=== PATIENT | male | born 1945 | race African-American/Black ===

== ENCOUNTER 2017-05-29 12:01 | Emergency (ER) | payer OTHER ==
[~2017-05-29] VITALS: Ht 182.9 cm; Wt 95.3 kg
--- NOTE | ~2017-05-29 | EKG ---
[place] [address] [address] [facility] [place] [address] ELECTROCARDIOGRAM REPORT Name: RICK RUIZ Room #: [facility]#: [id number] Admission: 05/29/17 Attend Phys: Discharge: Date of : 43 Report #: [id number] THIS REPORT FOR: //name// [facility] ED Test Date: 2017-05-29 Test Time: 13:21:49 Pat Name: RICK RUIZ Department: Room: Gender: M [facility]inarian[facility] 1945 Requested By: Avi Simpson Order Number: [id number] MD: Kevan Alcaraz Measurements Intervals [place] Rate: 92 P: 57 [place]: 188 QRS: -21 QRSD: 101 T: 78 QT: 378 QTc: 468 Interpretive Statements Sinus rhythm Probable left atrial enlargement Left ventricular hypertrophy Compared to ECG 08/15/2012 10:16:02 Left ventricular hypertrophy now present Ventricular premature complex(es) no longer present T-wave abnormality no longer present Electronically Signed On 05-29-2017 16:29:56 CUSTOMER RETENTION SPECIALIST by Kevan Alcaraz [email or web address] <ELECTRONICALLY SIGNED> By: Kevan Alcaraz MD 05/29/17 1629 1321 1321 Kevan Alcaraz MD /EPI
[~2017-05-29 12:01] MED LIST: ASPIRIN EC81 M1 PO; ATENOLOL 50 MG50 M1 PO; ATENOLOL 50MG T50 M1 PO; COUMADIN 5 MG TA5 M1 PO; DEEP SEA NASAL44 M1 NS; ECHINACEA HERB380 MG PO; ECHINACEA167 MG PO; ENOXAPARIN100 MG/1 M SQ; LIPITOR40 MG PO; LISINOPRIL20 MG PO; LISINOPRIL30 MG PO; NASAL & SINUS D30 MG PO; NITROSTAT0.4 MG SL; NORVASC10 MG; NORVASC10 MG PO; VICODIN 5-5001 EACH PO
[2017-05-29 12:54] LABS: HEMATOCRIT 42.4 % (42.0-52.0); HEMOGLOBIN 14.3 gm/dL (14.0-18.0); MCH 31.2 pg (26.0-34.0); MCHC 33.7 g/dL (28.0-37.0); MCV 92.6 fL (80.0-100.0); PLATELET COUNT 179 thou/uL (150-400); RBC 4.58 mil/uL (4.50-6.00); RDW 13.3 % (10.5-14.5)
[2017-05-29 13:01] LABS: ANION GAP 7 mmol/L (7-16); BUN 14 mg/dL (7-18); CALCIUM 8.6 mg/dL (8.5-10.1); CHLORIDE 105 mmol/L (98-107); CO2 29 mmol/L (21-32); CREATININE 1.3 mg/dL (0.7-1.3); GLUCOSE 112 mg/dL (74-106); SODIUM 141 mmol/L (136-145)
[2017-05-29 13:10] LABS: ALBUMIN 3.1 g/dL (3.4-5.0); MAGNESIUM 2.4 mg/dL (1.8-2.4); SGOT 32 U/L (15-37); SGPT 31 U/L (30-65); TOTAL BILIRUBIN 1.5 mg/dL (<0.1-1.0); TROPONIN-I < 0.04 ng/mL (<0.06)
[2017-05-29 13:17] LABS: BE(vivo) 2.7 mmol/L (-2 to +3); HCO3 27.9 mmol/L (22.0-26.0); PO2 55.8 mmHg (80.0-100.0); pH 7.411 (7.360-7.450); sO2 89.2 % (92.0-98.0)
[2017-05-29 13:50] LABS: ABSOLUTE NEUTROPHILS 4.7 thou/uL (1.4-8.2)
[2017-05-29] MEDS ORDERED: PREDNISONE 20 M20 MG PO (13:54)
[2017-05-29] MEDS ORDERED: ALBUTEROL2.5 MG/31 INH (13:54)
[2017-05-29 14:10] VITALS: BP 130/79
[2017-11-06] MEDS ORDERED: POTASSIUM20 PO (00:51)
[2017-11-06] MEDS ORDERED: LASIX 20 MG TAB20 MG PO (00:51)
[2017-11-11] MEDS ORDERED: PACERONE 200 M200 M1 PO (16:04)
[2017-11-11] MEDS ORDERED: CARVEDILOL3.125 MG PO (16:04)
[2017-11-11] MEDS ORDERED: IPRAT-ALBUT 0.5-3 ML INH ×2 (16:04)
[2017-11-11] MEDS ORDERED: ALPRAZOLAM 0.50.5 M1 PO (16:04)
[2017-11-11] MEDS ORDERED: PREDNISONE 20 M20 M1 PO (16:04)
[2017-11-11] MEDS ORDERED: DEMADEX20 MG PO (16:04)
[2017-11-11] MEDS ORDERED: FOLIC ACID 1 MG1 MG PO (16:04)
== END 2017-05-29 14:10 | disposition home or self-care (01) ==
LOC: ER 12:01
PROVIDERS: Emergency Medicine
DX: J44.1 Chronic obstructive pulmonary disease with (acute) exacerbation (principal); R09.02 Hypoxemia; I10 Essential (primary) hypertension; F17.210 Nicotine dependence, cigarettes, uncomplicated; I25.2 Old myocardial infarction

== ENCOUNTER → 2017-09-12 | Outpatient (CLI) | payer OTHER ==
[~2017-09-12] MED LIST changes: +12 HOUR NASAL R15 ML NASAL; +ALBUTEROL2.5 MG/31 INH; +COZAAR 50 MG TA50 M2 PO; +DOXYCYCLINE 10100 MG PO; +FLONASE 0.05%50 MCG NASAL; +MUCINEX600 MG PO; +PREDNISONE 20 M20 MG PO
== END ==
LOC: ULTRA
DX: M79.89 Other specified soft tissue disorders (principal)

== ENCOUNTER 2017-09-20 16:00 | Emergency (ER) | payer OTHER ==
[~2017-09-20] VITALS: Ht 182.9 cm; Wt 99.8 kg
--- NOTE | ~2017-09-20 | EKG ---
[address] [address] ELECTROCARDIOGRAM REPORT Name: RICK RUIZ Room #: [facility]#: [id number] Admission: 09/20/17 Attend Phys: Discharge: 09/20/17 Date of : 43 Report #: [id number] THIS REPORT FOR: //name// [facility] ED Test Date: 2017-09-20 Test Time: 16:22:36 Pat Name: RICK RUIZ Department: Room: Gender: Demurrage Agent: Sekou HESS : 1945 Requested By: Nilam Osman Order Number: [id number] MD: Curry Sims Measurements Intervals [place] Rate: 104 P: -2 IN: 189 QRS: -24 QRSD: 99 T: 88 QT: 360 QTc: 474 Interpretive Statements Sinus tachycardia Left ventricular hypertrophy with repolarization abnormality Compared to ECG 05/29/2017 13:21:49 Sinus rhythm no longer present Electronically Signed On 09-21-2017 12:56:54 CDT by Curry Sims [email or web address] <ELECTRONICALLY SIGNED> By: Curry Sims MD 09/21/17 1256 1622 1622 MD JP Cruz
[~2017-09-20 16:00] MED LIST changes: -12 HOUR NASAL R15 ML NASAL; -COZAAR 50 MG TA50 M2 PO; -DOXYCYCLINE 10100 MG PO; -FLONASE 0.05%50 MCG NASAL; -MUCINEX600 MG PO
[2017-09-20] MEDS ORDERED: FLONASE 0.05%50 MCG NASAL (16:26)
[2017-09-20] MEDS ORDERED: COZAAR 50 MG TA50 M2 PO (16:27)
[2017-09-20] MEDS ORDERED: 12 HOUR NASAL R15 ML NASAL (16:28)
[2017-09-20 16:48] LABS: ABSOLUTE NEUTROPHILS 3.3 thou/uL (1.4-8.2); BASOPHILS 1.5 % (0.0-2.0); EOSINOPHILS 4.1 % (0.0-3.0); HEMATOCRIT 39.3 % (42.0-52.0); HEMOGLOBIN 13.2 gm/dL (14.0-18.0); LYMPHOCYTES 16.3 % (24.0-44.0); MCH 31.6 pg (26.0-34.0); MCHC 33.7 g/dL (28.0-37.0); PLATELET COUNT 174 thou/uL (150-400); POLYS 69.1 % (36.0-66.0); RBC 4.18 mil/uL (4.50-6.00); WBC 4.8 thou/uL (4.0-11.0)
[2017-09-20 16:57] LABS: ANION GAP 8 mmol/L (7-16); BUN 15 mg/dL (7-18); CALCIUM 8.9 mg/dL (8.5-10.1); CHLORIDE 106 mmol/L (98-107); CO2 27 mmol/L (21-32); CREATININE 1.3 mg/dL (0.7-1.3); GLUCOSE 82 mg/dL (74-106); POTASSIUM 3.9 mmol/L (3.5-5.1); SODIUM 141 mmol/L (136-145)
[2017-09-20 17:05] LABS: ALBUMIN 3.3 g/dL (3.4-5.0); SGOT 31 U/L (15-37); SGPT 32 U/L (30-65); TOTAL BILIRUBIN 1.3 mg/dL (<0.1-1.0); TOTAL PROTEIN 7.2 g/dL (6.4-8.2); TROPONIN-I < 0.04 ng/mL (<0.06)
[2017-09-20 18:26] LABS: BE(vivo) 1.9 mmol/L (-2 to +3); HCO3 26.3 mmol/L (22.0-26.0); PCO2 40.7 mmHg (35.0-45.0); PO2 72.9 mmHg (80.0-100.0); pH 7.429 (7.360-7.450); sO2 95.1 % (92.0-98.0)
[2017-09-20] MEDS ORDERED: MUCINEX600 MG PO (19:20)
[2017-09-20] MEDS ORDERED: DOXYCYCLINE 10100 MG PO (19:20)
[2017-09-20] MEDS ORDERED: PREDNISONE 20 M20 MG PO (19:20)
== END 2017-09-20 19:56 | disposition home or self-care (01) ==
LOC: ER 16:00
PROVIDERS: Physician Assistant
DX: J44.1 Chronic obstructive pulmonary disease with (acute) exacerbation (principal); Z99.81 Dependence on supplemental oxygen; I10 Essential (primary) hypertension; I25.2 Old myocardial infarction

== ENCOUNTER 2018-02-09 18:06 | Emergency (ER) | payer OTHER ==
[~2018-02-09] VITALS: Ht 188 cm; Wt 77.1 kg
--- NOTE | ~2018-02-09 | EKG ---
[place] [address] [address] [facility] [place] [address] ELECTROCARDIOGRAM REPORT Name: RICK RUIZ Room #: [facility]#: [id number] Admission: 02/09/18 Attend Phys: Discharge: 02/09/18 Date of : 43 Report #: [id number] THIS REPORT FOR: //name// [facility] ED Test Date: 2018-02-09 Test Time: 18:06:42 Pat Name: RICK RUIZ Department: Room: Gender: M Data Warehouse Analyst: MARIA DE JESUS : 1945 Requested By: Kaylyn Lepe Order Number: [id number] MD: Robert Johnston Measurements Intervals [place] Rate: 102 P: 54 SD: 184 QRS: -7 QRSD: 107 T: 91 QT: 336 QTc: 438 Interpretive Statements Sinus tachycardia LVH with secondary repolarization abnormality Baseline wander in lead(s) V1 Compared to ECG 11/05/2017 20:14:35 No significant change was found Electronically Signed On 02-10-2018 7:55:38 CDT by Robert Johnston [email or web address] <ELECTRONICALLY SIGNED> By: Robert Johnston MD, [facility] 02/10/18 0755 05 05 Robert Johnston MD, [facility] /EPI
[~2018-02-09 18:06] MED LIST changes: +12 HOUR NASAL R15 ML NASAL; +ALPRAZOLAM 0.50.5 M1 PO; +CARVEDILOL3.125 MG PO; +COZAAR 50 MG TA50 M2 PO; +DEMADEX20 MG PO; +DOXYCYCLINE 10100 MG PO; +FLONASE 0.05%50 MCG NASAL; +FOLIC ACID 1 MG1 MG PO; +IPRAT-ALBUT 0.5-3 ML INH; +LASIX 20 MG TAB20 MG PO; +MUCINEX600 MG PO; +PACERONE 200 M200 M1 PO; +POTASSIUM20 PO; +PREDNISONE 20 M20 M1 PO
[2018-02-09 18:37] LABS: ABSOLUTE NEUTROPHILS 4.5 thou/uL (1.4-8.2); BASOPHILS 0.4 % (0.0-2.0); EOSINOPHILS 2.5 % (0.0-3.0); HEMATOCRIT 33.9 % (42.0-52.0); HEMOGLOBIN 11.3 gm/dL (14.0-18.0); LYMPHOCYTES 11.9 % (24.0-44.0); MCH 31.4 pg (26.0-34.0); MCHC 33.3 g/dL (28.0-37.0); MCV 94.4 fL (80.0-100.0); MONOCYTES 7.9 % (1.0-8.0); PLATELET COUNT 172 thou/uL (150-400); POLYS 77.3 % (36.0-66.0); RBC 3.59 mil/uL (4.50-6.00); RDW 14.7 % (10.5-14.5); WBC 5.8 thou/uL (4.0-11.0)
[2018-02-09 18:43] LABS: ANION GAP 5 mmol/L (7-16); BUN 13 mg/dL (7-18); CALCIUM 8.6 mg/dL (8.5-10.1); CHLORIDE 105 mmol/L (98-107); CO2 28 mmol/L (21-32); CREATININE 1.4 mg/dL (0.7-1.3); GLUCOSE 106 mg/dL (74-106); POTASSIUM 4.3 mmol/L (3.5-5.1); SODIUM 138 mmol/L (136-145)
[2018-02-09 18:52] LABS: TROPONIN-I <0.06 ng/mL (<0.06)
[2018-02-09 20:10] VITALS: BP 135/79
== END 2018-02-09 20:11 | disposition home or self-care (01) ==
LOC: ER 18:06
PROVIDERS: Emergency Medicine
DX: I13.0 Hypertensive heart and chronic kidney disease with heart failure and stage 1 through stage 4 chronic kidney disease, or unspecified chronic kidney disease (principal); N18.3 Chronic kidney disease, stage 3 (moderate); I50.9 Heart failure, unspecified; J44.9 Chronic obstructive pulmonary disease, unspecified; E78.00 Pure hypercholesterolemia, unspecified; Z86.718 Personal history of other venous thrombosis and embolism; Z87.891 Personal history of nicotine dependence; Z99.81 Dependence on supplemental oxygen

== ENCOUNTER 2018-03-09 20:20 | Inpatient (IN) | payer OTHER ==
[~2018-03-09] VITALS: Ht 188 cm; Wt 88.3 kg
--- NOTE | ~2018-03-09 | HC ---
[facility] [place] [address] CONSULTATION Name: RICK RUIZ Room #: 364-P ADM IN M.R.#: [id number] Admission: 03/09/18 Attend Phys: Nura Adame Discharge: Date of : 43 Report #: [id number] THIS REPORT FOR: //name// CC: Nura Kolb REFERRAL PHYSICIAN: Dr. Sims. REASON FOR REFERRAL: Dyspnea. HISTORY OF PRESENT ILLNESS: The patient is a 72-year-old -[place]ian male who presented to the Emergency Room with progressive dyspnea. He was admitted for heart failure. The patient has underlying COPD. A pulmonary consultation was requested. The patient was last hospitalized in 10/2017 for exacerbation of COPD. He has been doing fairly well until the morning prior to presentation where he started to develop increasing dyspnea. He has also noticed that lower extremity is swollen. Otherwise, denies any recent chest pain, productive cough, febrile illness. PAST MEDICAL HISTORY: Notable for coronary artery disease, ischemic cardiomyopathy, ejection fraction of 30% with valvular heart disease. He has a history of COPD, is oxygen dependent. He is normally followed by Pulmonary outside of [facility]. He is on 3 liters of O2, 24 hours a day. He also has a past history of hypertension, hypercholesterolemia, chronic renal disease, remote history of DVT. There is a history of medical noncompliance. PAST SURGICAL HISTORY: Status post bilateral inguinal herniorrhaphy. ALLERGIES: None to medications. HOME MEDICATIONS: Reviewed in the MAR. FAMILY HISTORY: Noncontributory. SOCIAL HISTORY: The patient has smoked about a pack a day for most of his life. He quit few years ago. He drinks socially. REVIEW OF SYSTEMS: As mentioned above, otherwise 10-point system review negative. PHYSICAL EXAMINATION: GENERAL: He is awake, alert, in mild distress, appears moderately dyspneic. VITAL SIGNS: Temperature is 98 degrees Fahrenheit, pulse is 90, respiratory rate is 18, blood pressure 114/79 mmHg, saturation 99%. HEENT: Normocephalic, atraumatic. [facility] [address] [place] [address] CONSULTATION Name: RICK RUIZ Room #: 364-P [facility] IN M.R.#: [id number] Admission: 03/09/18 Attend Phys: Nura Howard Deep Discharge: Date of : 43 Report #: [id number] NECK: Supple, without lymphadenopathy or thyromegaly. CHEST: Breath sounds are decreased bilaterally with mild expiratory wheezes. No obvious wheezes. No rales. CARDIOVASCULAR: Normal S1, S2. No murmurs or gallop. There is no JVD. There is no carotid bruit. Pulses are 2+/4+ bilaterally. ABDOMEN: Soft, nontender, no organomegaly or masses felt. GENITOURINARY: Deferred. RECTAL: Deferred. EXTREMITIES: Reveal 3+ tense bilateral lower extremity edema. No clubbing noted. NEUROLOGIC: Grossly intact. LABORATORY DATA: Chest x-ray shows no obvious infiltrates, mild increase in interstitial markings, but no consolidation, no effusion seen. Electrolytes: Sodium 141, potassium 5.1, chloride 106, CO2 is 29, BUN is 29, creatinine is 1.6. Baseline creatinine appears to be 1.2-1.7. Albumin 2.8. WBC 4200, hemoglobin 11.6. IMPRESSION: 1. Progressive dyspnea in this 72-year-old -[place]ambian male. Etiology is probably related to vhgxc-hp-fzobgyr combined heart failure. He has increased lower extremity edema. His dyspnea is likely contributed by underlying chronic obstructive pulmonary disease. 2. Chronic obstructive pulmonary disease, severity unknown, oxygen-dependent at 3 liters of O2. 3. Iytho-cn-adbubvy hypercapnic hypoxic respiratory failure due to above. 4. Chronic kidney disease, baseline creatinine around 1.2-1.7. 5. Coronary artery disease, ischemic cardiomyopathy with ejection fraction 30%. 6. Hypertension. RECOMMENDATION: We will continue O2 to keep saturation 90-92%, continue with bronchodilator therapy. I do not think he needs a course of corticosteroids at this time. Continue diuresis as you are. DVT and GI prophylaxis recommended. Thank you for this consultation. <ELECTRONICALLY SIGNED> By: Bucky Pedroza MD 03/11/18 184 23 10 Bucky Pedroza MD /nt
--- NOTE | ~2018-03-09 | EKG ---
[address] [place] [address] ELECTROCARDIOGRAM REPORT Name: RICK RUIZ Room #: 364-P ADM IN M.R.#: [id number] Admission: 03/09/18 Attend Phys: Nura Adame Discharge: Date of : 43 Report #: [id number] THIS REPORT FOR: //name// [facility] ED Test Date: 2018-03-09 Test Time: 20:27:17 Pat Name: RICK GARNICALER Department: Room: 364 Gender: M Assistant Pastry Chef: pawel : 1945 Requested By: Mimi Menard Order Number: [id number] MD: Robert Johnston Measurements Intervals [place] Rate: 99 P: 69 [place]: 203 QRS: -17 QRSD: 106 T: 78 QT: 380 QTc: 488 Interpretive Statements Sinus tachycardia Ventricular trigeminy Nonspecific ST and T wave abnormality Borderline prolonged QT interval Compared to ECG 02/09/2018 18:06:42 Ventricular premature complex(es) now present Electronically Signed On 03-10-2018 8:51:48 TEA PLANTATION WORKER by Robert Johnston [email or web address] <ELECTRONICALLY SIGNED> By: Robert Johnston MD, [facility] 03/10/18 0851 26 26 Robert Johnston MD, [facility] /EPI
--- NOTE | ~2018-03-09 | HC ---
[facility] [place] [address] CONSULTATION Name: SARAIRCK Jerome Room #: 364-P [facility] IN ..#: [id number] Admission: 03/09/18 Attend Phys: Nura Adame Discharge: Date of : 43 Report #: [id number] THIS REPORT FOR: //name// CC: Nura Chancevsky DATE OF SERVICE: 03/09/2018 INDICATION: Shortness of air. HISTORY OF PRESENT ILLNESS: This is a 72-year-old gentleman with a history of COPD on chronic oxygen therapy, cardiomyopathy, coronary artery disease, hypertension, hypercholesterolemia, chronic renal insufficiency, and medical noncompliance, presenting with dyspnea. Over the past few days, he has noticed increasing dyspnea and cough. He denies any symptoms of chest discomfort, fever, nausea or diarrhea. In the ER, he was given Lasix with an improvement in his symptoms. He denies any recent increase in his salt intake. He is on 3 liters of oxygen via nasal cannula. On his last office visit approximately 6 months ago, he was noted to have increased swelling of the legs, a diuretic was recommended; however, he refused. He has a history of refusing statin therapy, beta blockers and diuretic therapy. PAST MEDICAL HISTORY: CAD, noted to have a 75% LAD occlusion back in 2012. Angioplasty was unobtainable secondary to vessel tortuosity within the aorta. History of chronic obstructive pulmonary disease, on chronic oxygen therapy. Newly diagnosed with cardiomyopathy in 10/2017 with an EF in the 30% range with moderate valvular abnormalities. History of hypertension, hypercholesterolemia, chronic renal insufficiency, and remote DVT. History of medical noncompliance. ALLERGIES: No known drug allergies. MEDICATIONS: At home include albuterol inhaler, losartan, aspirin. SOCIAL HISTORY: Denies tobacco use. FAMILY HISTORY: Negative for premature CAD. REVIEW OF SYSTEMS: A full 10-point review of systems performed. Only the pertinent positives and negatives are described in the HPI. PHYSICAL EXAMINATION: VITAL SIGNS: Blood pressure is 120/70, heart rate is 80 beats per minute. GENERAL APPEARANCE: An elderly appearing male, in no acute respiratory distress. [facility] [address] [place] [address] CONSULTATION Name: RICK RUIZ Justus Room #: 364-P [facility] IN .R.#: [id number] Admission: 03/09/18 Attend Phys: Nura Adame Discharge: Date of : 43 Report #: [id number] HEENT: Normocephalic, atraumatic. Sclerae are anicteric. Oral mucosa moist. NECK: Supple. LUNGS: Diminished breath sounds at the bases. CARDIAC: Regular rate and rhythm, S1, S2 positive. ABDOMEN: Soft, nontender. EXTREMITIES: No cyanosis, positive edema. LABORATORY VALUES: Creatinine is 1.6. White count is 4.2, hemoglobin 11.6. EKG reveals sinus rhythm, LVH, PVCs. ASSESSMENT AND PLAN: 1. Congestive heart failure, acute on chronic combined, probably related to dietary indiscretion. He had refused Lasix therapy in the past. We will use Lasix IV at this time. Given his underlying cardiomyopathy, we will add a low dose of carvedilol. Continue with losartan. 2. Chronic obstructive pulmonary disease, on chronic oxygen therapy. Recommend a Pulmonary evaluation to rule out possible infectious process. 3. Hypertension, continue with medications. 4. Edema, should improve with Lasix therapy. 5. Hypercholesterolemia, he refuses statin therapy. <ELECTRONICALLY SIGNED> By: Curry Sims MD 03/11/18 0809 0941 1138 Curry Sims MD /nt
[2018-03-09 20:21] VITALS: BP 119/71
[2018-03-09] MEDS ORDERED: LASIX 20 MG TAB20 MG PO (20:36)
[2018-03-09] MEDS ORDERED: CYMBALTA20 MG PO (20:37)
[2018-03-09] MEDS ORDERED: TRELEGY ELLIPT1 EACH INH (20:38)
[2018-03-09 20:41] LABS: ABSOLUTE NEUTROPHILS 2.8 thou/uL (1.4-8.2); BASOPHILS 0.9 % (0.0-2.0); EOSINOPHILS 4.9 % (0.0-3.0); HEMATOCRIT 34.8 % (42.0-52.0); HEMOGLOBIN 11.6 gm/dL (14.0-18.0); LYMPHOCYTES 18.5 % (24.0-44.0); MCHC 33.3 g/dL (28.0-37.0); MCV 95.9 fL (80.0-100.0); MONOCYTES 8.2 % (1.0-8.0); PLATELET COUNT 178 thou/uL (150-400); POLYS 67.5 % (36.0-66.0); RBC 3.62 mil/uL (4.50-6.00); RDW 14.4 % (10.5-14.5); WBC 4.2 thou/uL (4.0-11.0)
[2018-03-09 20:50] LABS: ANION GAP 4 mmol/L (7-16); BUN 21 mg/dL (7-18); CALCIUM 9.2 mg/dL (8.5-10.1); CHLORIDE 107 mmol/L (98-107); CO2 28 mmol/L (21-32); CREATININE 1.3 mg/dL (0.7-1.3); GLUCOSE 78 mg/dL (74-106); POTASSIUM 4.9 mmol/L (3.5-5.1); SODIUM 139 mmol/L (136-145)
[2018-03-09 20:58] LABS: ALBUMIN 2.8 g/dL (3.4-5.0); LIPASE 48 U/L (73-393); MAGNESIUM 1.9 mg/dL (1.8-2.4); SGOT 34 U/L (15-37); SGPT 20 U/L (30-65); TOTAL BILIRUBIN 1.8 mg/dL (<0.1-1.0); TOTAL PROTEIN 6.7 g/dL (6.4-8.2); TROPONIN-I <0.06 ng/mL (<0.06)
[2018-03-09 21:44] VITALS: BP 122/66
[2018-03-09 22:42] VITALS: BP 108/66
[2018-03-10 00:26] VITALS: BP 122/75
[2018-03-10 04:00] VITALS: BP 112/88
[2018-03-10 07:07] LABS: CALCIUM 9.1 mg/dL (8.5-10.1); CREATININE 1.6 mg/dL (0.7-1.3); POTASSIUM 5.1 mmol/L (3.5-5.1)
[2018-03-10 08:31] VITALS: BP 114/79
[2018-03-10 14:33] VITALS: BP 103/60
[2018-03-10 20:30] VITALS: BP 99/56
[2018-03-11 04:30] VITALS: BP 117/78
[2018-03-11 06:46] LABS: CALCIUM 8.9 mg/dL (8.5-10.1); CREATININE 1.8 mg/dL (0.7-1.3); PHOSPHORUS 5.5 mg/dL (2.5-4.9); POTASSIUM 4.9 mmol/L (3.5-5.1)
[2018-03-11 08:38] VITALS: BP 118/78
[2018-03-11 11:42] VITALS: BP 108/63
[2018-03-11 16:30] VITALS: BP 110/64
[2018-03-11 20:30] VITALS: BP 104/70
[2018-03-12 05:10] VITALS: BP 106/66
[2018-03-12 06:50] LABS: CALCIUM 9.1 mg/dL (8.5-10.1); CREATININE 1.8 mg/dL (0.7-1.3); POTASSIUM 5.2 mmol/L (3.5-5.1)
[2018-03-12 07:22] LABS: FOLIC ACID 6.6 ng/mL (8.6-58.9)
[2018-03-12] MEDS ORDERED: COREG6.25 MG PO (07:52)
[2018-03-12] MEDS ORDERED: PREDNISONE 10 M10 MG PO (07:53)
[2018-03-12 08:00] VITALS: BP 116/73
[2018-03-12 09:37] VITALS: BP 116/73
[2018-03-12 12:00] VITALS: BP 109/52
== END 2018-03-12 16:07 | disposition home or self-care (01) | DRG 682 ==
LOC: ER 20:20 → EROBS 21:25 → 3W 21:25 → ENTRNSPT 03-12 15:47 → EDTRNSPTSTS 03-12 15:50 → 3W 03-12 16:07
PROVIDERS: Hospitalist; Internal Medicine Cardiovascular Disease; Nurse Practitioner Family
DX: N17.0 Acute kidney failure with tubular necrosis (principal); I50.43 Acute on chronic combined systolic (congestive) and diastolic (congestive) heart failure; J96.21 Acute and chronic respiratory failure with hypoxia; J96.22 Acute and chronic respiratory failure with hypercapnia; I13.0 Hypertensive heart and chronic kidney disease with heart failure and stage 1 through stage 4 chronic kidney disease, or unspecified chronic kidney disease; J44.9 Chronic obstructive pulmonary disease, unspecified; F41.9 Anxiety disorder, unspecified; N18.3 Chronic kidney disease, stage 3 (moderate); I25.10 Atherosclerotic heart disease of native coronary artery without angina pectoris; E78.00 Pure hypercholesterolemia, unspecified; I25.5 Ischemic cardiomyopathy; Z66 Do not resuscitate; G47.00 Insomnia, unspecified; T50.2X5A Adverse effect of carbonic-anhydrase inhibitors, benzothiadiazides and other diuretics, initial encounter; Z68.25 Body mass index [BMI] 25.0-25.9, adult; Z98.52 Vasectomy status; Z86.718 Personal history of other venous thrombosis and embolism; Z87.891 Personal history of nicotine dependence; Z91.14 Patient's other noncompliance with medication regimen; Z99.81 Dependence on supplemental oxygen; Z82.49 Family history of ischemic heart disease and other diseases of the circulatory system; Z83.3 Family history of diabetes mellitus; I25.2 Old myocardial infarction
CPT/HCPCS: 10879

== ENCOUNTER 2018-04-20 15:39 | Inpatient (IN) | payer OTHER ==
[~2018-04-20] VITALS: Ht 188 cm; Wt 89.1 kg
[~2018-04-20 15:39] MED LIST changes: +COREG6.25 MG PO; +CYMBALTA20 MG PO; +PREDNISONE 10 M10 MG PO; +TRELEGY ELLIPT1 EACH INH
[2018-04-20 15:40] VITALS: BP 114/70
[2018-04-20 17:49] LABS: CALCIUM 8.8 mg/dL (8.5-10.1); CREATININE 1.5 mg/dL (0.7-1.3); POTASSIUM 3.8 mmol/L (3.5-5.1)
[2018-04-20 17:55] LABS: ALBUMIN 2.7 g/dL (3.4-5.0); TOTAL BILIRUBIN 2.1 mg/dL (<0.1-1.0); TOTAL PROTEIN 6.2 g/dL (6.4-8.2)
[2018-04-20 18:23] LABS: URINE CLARITY CLEAR; URINE COLOR YELLOW
[2018-04-20 18:24] LABS: ICTOTEST (BILI CONFIRMATORY) Negative (Negative); URINE BILIRUBIN NEGATIVE (Negative); URINE BLOOD TRACE (Negative); URINE GLUCOSE-RANDOM* NEGATIVE (Negative); URINE KETONES NEGATIVE (Negative); URINE LEUKOCYTES-REFLEX NEGATIVE (Negative); URINE NITRITE-REFLEX NEGATIVE (Negative); URINE PROTEIN (DIPSTICK) NEGATIVE (Negative)
[2018-04-20 18:48] VITALS: BP 113/69
[2018-04-20 19:29] VITALS: BP 111/69
[2018-04-20 20:40] VITALS: BP 123/73
--- NOTE | 2018-04-21 02:54 | NUR ---
PT WAS EARLY EVENING ADMIT FROM ER. HISTORY SHOWS PT HAS BEEN HERE QUITE A FEW TIMES BEFORE AND MOST RECENTLY 03/01 WITH SAME SYMPTOMS. PT IS NOW ON 3L NC. OVER LAST 5 DAYS PT HAS BEEN BECOMING INCREASING MORE LETHARGIC AND HAVING BOUTS OF CONFUSION. PT UP TO BEDSIDE TO USE URINAL. USES WHEELCHAIR FOR MOVEMENT IN LONG DISTANCES. DURING ADMISSION PT STATES HE HAS NO N/V OR PAIN. LASIX WAS GIVEN AND PT IS PRODUCING GOOD AMOUNTS OF URINE OUT. HOURLY ROUNDING.
[2018-04-21 04:27] LABS: CALCIUM 8.8 mg/dL (8.5-10.1); CREATININE 1.4 mg/dL (0.7-1.3); POTASSIUM 4.5 mmol/L (3.5-5.1)
[2018-04-21 04:30] VITALS: BP 122/77
--- NOTE | 2018-04-21 07:57 | EKG ---
[place] [address] [address] [place] [address] ELECTROCARDIOGRAM REPORT Name: RICK RUIZ Room #: 357- ADM IN M.R.#: [id number] Admission: 04/20/18 Attend Phys: Vikas Bennett MD Discharge: Date of : 43 Report #: [id number] THIS REPORT FOR: //name// [facility] ED Test Date: 2018-04-20 Test Time: 17:34:12 Pat Name: RICK RUIZ Department: Room: 357 Gender: M Interactive Media Director: autumn : 1945 Requested By: Davin Singh Order Number: [id number] MD: Robert Johnston Measurements Intervals [place] Rate: 93 P: 40 MT: 191 QRS: -3 QRSD: 104 T: 114 QT: 401 QTc: 499 Interpretive Statements Sinus rhythm Ventricular bigeminy LVH with secondary repolarization abnormality Compared to ECG 03/09/2018 20:27:17 Lateral T wave abnormality is less prominent Electronically Signed On 04-21-2018 7:57:40 PIG MACHINE OPERATOR HELPER by Robert Johnston [email or web address] <ELECTRONICALLY SIGNED> By: Robert Johnston MD, [facility] 04/21/18 0757 1734 1734 Robert Johnston MD, [facility] /EPI
[2018-04-21 08:07] VITALS: BP 127/83
--- NOTE | 2018-04-21 10:57 | NUR ---
INITIAL ASSESSMENT: Pt evaluated for d/c planning needs. Reviewed chart and spoke with nurse and pt. Pt is alert and oriented. Pt states he was just yesterday. Pt has walker, can, w/c and oxygen at home. Pt has had [facility] in the past. Pt said his daughter is looking into him going to SNF on d/c from hospital. Physician spoke with pt re: cardiac rehab. Will remain available to assist as needed.
[2018-04-21 11:56] VITALS: BP 113/53
[2018-04-21 15:16] VITALS: BP 117/71
--- NOTE | 2018-04-21 16:18 | NUR ---
PT ASSESSED AT START OF SHIFT. IN GOOD SPIRITS. MANY QUESTIONS RE CONDITION AND CHF. HAD DONE WELL ON FLUID RESTRICTION. UP TO THE BR W/ WALKER AND HAD GOOD BM. SAT UP FOR SEVERAL HOURS. DIURESING SOME AFTER IV LASIX. DR. MONTEJO IN THIS AM.
[2018-04-21 19:39] VITALS: BP 99/63
[2018-04-22 04:13] LABS: HEMATOCRIT 37.6 % (42.0-52.0); HEMOGLOBIN 12.4 gm/dL (14.0-18.0); MCH 31.7 pg (26.0-34.0); MCV 96.2 fL (80.0-100.0); RBC 3.91 mil/uL (4.50-6.00); RDW 13.8 % (10.5-14.5); WBC 10.4 thou/uL (4.0-11.0)
[2018-04-22 04:17] LABS: CALCIUM 8.5 mg/dL (8.5-10.1); CREATININE 1.7 mg/dL (0.7-1.3); POTASSIUM 4.7 mmol/L (3.5-5.1)
--- NOTE | 2018-04-22 04:21 | NUR ---
PATIENT IS PROGRESSING IN HIS CARE PLAN. VITAL SIGNS STABLE WITH PATIENT HAVING NO COMPLAINTS OF PAIN OR NAUSEA. FULLY ORIENTED, PATIENT IS ABLE TO PARTICIPATE IN CARE AND CALL FOR NEEDS. HE DOES EXHIBIT SOME FORGETFUL ON OCCASION. BREATHING STABLE ON NASAL CANNULA PER ORDER EVIDENCED BY SPOT OXYGENATION CHECKS. PATIENT DOES GET EXTREMELY SOA WHEN AMBULATING AND REQUIRES A HIGHER AMOUNT OF OXYGEN. PATIENT IS A HIGH FALL RISK AND WAS ABLE TO AMBULATE TO THE RESTROOM WITHOUT INCIDENT. FLUID RESTRICTION FOLLOWED. PATIENT AND DAUGHTER ARE ANXIOUS FOR PATIENTS DISCHARGE TO SNF AND CALLED LATE LAST NIGHT TO GIVE THIS NURSE INFORMATION TO BE PASSED ON TO KNITTING TEACHER TO HOPEFULLY "EXPEDITE" THE PROCESS. IT WILL BE GIVEN IN REPORT. CONTINUE PLAN OF CARE.
[2018-04-22 04:26] VITALS: BP 125/86
--- NOTE | 2018-04-22 07:27 | NUR ---
PATIENTS DAUGHTER CALLED EARLY THIS MORNING AND WANTED THIS INFORMATION TO BE GIVEN TO CASE MANAGEMENT. - [facility] - [address], [place]. - ELIEL THOMPSON .
[2018-04-22 07:30] VITALS: BP 115/80
[2018-04-22 11:20] VITALS: BP 106/64
[2018-04-22 16:18] VITALS: BP 110/70
--- NOTE | 2018-04-22 16:32 | NUR ---
ON-GOING ASSESSMENT: CM REVIEWED CHART AND MET WITH PATIENT AND HIS SISTER WAS PRESENT AT THE BEDSIDE. PT/OT TO SEE PATIENT AND EVALS ARE NO IN YET. CM SPOKE WITH PATIENT AND HE FEELS HE MAY NEED SNF/REHAB AGAIN. PT HAS BEEN TO [facility] IN THE PAST AND STATES HE WAS UPSET BECAUSE AFTER 30 DAYS HE STATED HE HAD TO LEAVE. CM DISCUSSED THAT INSURANCE WILL LIKELY ONLY AUTHORIZE A CERTAIN AMOUNT OF DAYS. CM ALSO SPOKE WITH PATIENTS DWAYNE RUIZ [phone] WITH PATIENTS CONSENT AND SHE REPORTS SHE IS REALLY CONCERNED IF PATIENT WERE TO RETURN HOME AND FEELS PATIENT NEEDS REHAB. PT IS CURRENTLY LIVING WITH HIS SISTER CURTIS AND REPORTS SHE SMOKES ALOT. PT STATING THAT HIS DAUGHTER ALESSIO IS WORKING ON GETTING HIM TO A SNF. CM ATTEMPTED TO CONTACT HER BUT VM WAS LEFT. CM WILL CONTINUE TO FOLLOW. WAITING ON PT/OT EVALS.
--- NOTE | 2018-04-22 18:14 | NUR ---
assumed care of pt at 0700. pt alert and oriented, episodes of anxiety - finding good relief with xanax. breathing comfortably on supplemental oxygen. worked with physical/occupation therapy. voicing no complaints. no other remarkable changes. anticipate d/c in near future.
[2018-04-22 19:02] VITALS: BP 134/79
[2018-04-23 03:18] VITALS: BP 140/80
--- NOTE | 2018-04-23 03:36 | NUR ---
ASSUMED CARE AT 1900. PT SLEEPY, DROWSY BUT AO X4. DENIES PAIN. FAMILY CONCERNED ABOUT PT INCREASE CONFUSION AND WOULD LIKE PT TO HAVE A HEAD MRI TO DETERMINE REASON BEHIND CONFUSION AND FORGETFULNESS. PT OTHERWISE CALM AND PLEASANT, REQUESTED XANAX X1 AT 0200. WILL CONTINUE TO FOLLOW POC.
[2018-04-23 07:17] VITALS: BP 118/72
[2018-04-23 10:13] LABS: HEMATOCRIT 37.5 % (42.0-52.0); HEMOGLOBIN 12.1 gm/dL (14.0-18.0); MCH 31.2 pg (26.0-34.0); MCHC 32.4 g/dL (28.0-37.0); MCV 96.4 fL (80.0-100.0); RBC 3.89 mil/uL (4.50-6.00); RDW 14.1 % (10.5-14.5); WBC 12.4 thou/uL (4.0-11.0)
[2018-04-23 10:24] LABS: CALCIUM 8.7 mg/dL (8.5-10.1); CREATININE 1.6 mg/dL (0.7-1.3); MAGNESIUM 2.3 mg/dL (1.8-2.4); POTASSIUM 4.9 mmol/L (3.5-5.1)
[2018-04-23 11:14] VITALS: BP 116/77
--- NOTE | 2018-04-23 13:30 | NUR ---
ON-GOING ASSESSMENT: CM REVIEWED CHART. PHYSICAL THERAPY IS RECOMMENDING SNF. CM MET WITH PATIENT AT THE BEDSIDE. PT IS AGREEABLE TO GO TO SNF BUT DOES NOT WANT TO GO BACK TO [facility] WHERE HE WAS BEFORE. PATIENT STATING HE WILL GO TO WHATEVER SNF HIS DAUGHTER FEELS IS BEST. CM CONTACTED PATIENT DAUGHTER ALESSIO AND SHE REPORTS SHE IS AT WORK BUT WILL REVIEW THE LIST AND CALL CM SOON SHE REVIEWS SO REFERRALS CAN BE SENT OUT. CM WILL CONTINUE TO FOLLOW TO ASSIST NEEDED.
[2018-04-23 15:16] VITALS: BP 125/81
--- NOTE | 2018-04-23 15:38 | NUR ---
PT ALERT AND ORIENTED TIMES FOUR. VSS, 100%4L, SR ON TELE. PT DENIES PAIN. REMIANS SOB ON EXCERTION. PT WORKED WELL WITH PHYSICAL THEARPY. PT TOLERATES MEDS. PT ONLY ATE SMALL POTIONS OF MEALS TODAY. PT SLOWLY PROGRESSING TOWRADS POC GOALS.
[2018-04-23 19:30] VITALS: BP 115/74
[2018-04-24 03:35] VITALS: BP 120/82
[2018-04-24 05:27] LABS: HEMATOCRIT 38.3 % (42.0-52.0); HEMOGLOBIN 12.1 gm/dL (14.0-18.0); MCH 30.8 pg (26.0-34.0); MCHC 31.6 g/dL (28.0-37.0); MCV 97.5 fL (80.0-100.0); RBC 3.93 mil/uL (4.50-6.00); RDW 13.9 % (10.5-14.5); WBC 10.8 thou/uL (4.0-11.0)
[2018-04-24 05:50] LABS: CALCIUM 8.7 mg/dL (8.5-10.1); CREATININE 1.6 mg/dL (0.7-1.3); MAGNESIUM 2.4 mg/dL (1.8-2.4); POTASSIUM 4.8 mmol/L (3.5-5.1)
--- NOTE | 2018-04-24 06:41 | NUR ---
Patient did not sleep during the night. Had c/o shortness of breath though O2 sats remained within normal limits. Patient on 4L NC. VSS, progressing towards meeting goals.
[2018-04-24 07:20] VITALS: BP 120/78
--- NOTE | 2018-04-24 09:55 | NUR ---
ON-GOING ASSESSMENT: CM HEARD BACK FROM [facility] STATING THEY ARE NOT ACCEPTING NEW ADMISSIONS TO SNF AT THIS TIME MULTIPLE PATIENTS IN THEIR FACILITY HAVE CAME DOWN WITH GI SYMPTOMS AND ADMISSIONS ARE ON HOLD FOR 48 HOURS. CM CHECKED WITH [facility] TO SEE IF THEY GOT REFERRAL ON PATIENT AND IF THEY COULD ACCEPT HIM AND THEY ARE STATING THEY DO NOT SEE THE REFERRAL. CM REQUESTED MASTER RIGGER TO RE-FAX REFERRAL.
--- NOTE | 2018-04-24 10:05 | NUR ---
DISCHARGE PLANNING. PATIENT IS READY FOR DISCHARGE. POST ACUTE CARE RECOMMENDED. REFERRAL FAXED TO [facility]. CALL PLACED TO [facility] TO NOTIFY OF REFERRAL AND PATIENTS DISCHARGE NEEDS. [facility] TO SUBMIT FOR INSURANCE AUTH AND NOTIFY CM ONCE OBTAINED. UNIT CM/SW AWARE. FOLLOWING TO ASSIST.
[2018-04-24 11:30] VITALS: BP 122/75
[2018-04-24 16:00] VITALS: BP 123/76
[2018-04-24 18:45] VITALS: BP 109/71
--- NOTE | 2018-04-25 02:34 | NUR ---
ASSUMED CARE OF PATIENT AT 1899. VSS. ASSESSMENT COMPLETED AT 2034 AND IS DOCUMENTED. PT CONTINUES ON 1500 ML FLUID RESTRICTION. TRACE EDEMA NOTED TO BLE. PT C/O NPC. LEFT WRIST PIV PATENT AND SALINE LOCKED. PT CONTINUES ON 3.5L VIA NC. SOA WITH EXERTION NOTED. PT UP X1 ASSIST WITH WALKER AND USES URINAL. PT CURRENTLY SLEEPING SOUNDLY IN BED IN NO ACUTE DISTRESS. ABLE TO CALL OUT APPROPRIATELY. CALL LIGHT WITHIN REACH. BED LOCKED AND IN LOWEST POSITION. WCTM.
[2018-04-25 06:39] LABS: HEMATOCRIT 37.6 % (42.0-52.0); HEMOGLOBIN 12.4 gm/dL (14.0-18.0); MCH 31.5 pg (26.0-34.0); MCV 95.6 fL (80.0-100.0); RBC 3.94 mil/uL (4.50-6.00); RDW 13.9 % (10.5-14.5); WBC 7.8 thou/uL (4.0-11.0)
[2018-04-25 06:48] LABS: CALCIUM 8.6 mg/dL (8.5-10.1); CREATININE 1.5 mg/dL (0.7-1.3); MAGNESIUM 2.3 mg/dL (1.8-2.4); POTASSIUM 4.5 mmol/L (3.5-5.1)
[2018-04-25 08:14] VITALS: BP 119/72
--- NOTE | 2018-04-25 12:13 | NUR ---
ASSUMED CARE OF PATIENT AT 0715, PATIENT ALERT CAN BE FORGETFUL. PATIENT DENIES PAIN THIS AM. PAIENT HAS SOA WITH ACTIVITY, O2 AT 3 LITERS/NC, PATIENT WEARS O2 3-4 AT HOME. BILATERAL LUNGS/DIMINISHED WITH NON-PRODUCTIVE COUGH. PATIENT VOIDS PER URINAL. VSS THIS AM. PATIENT NEEDS SET UP FOR MEALS, APPETITE GOOD. PATIENT ON 1500CC FLUID RESTRICTION. LAST BM 8TH, BS HYPOACTIVE, PATIENT STATES HE GOES EVERY OTHER DAY. WILL CONTINUE TO MONITOR.
[2018-04-25 17:13] VITALS: BP 111/69
[2018-04-25 19:25] VITALS: BP 101/61
--- NOTE | 2018-04-26 03:17 | NUR ---
ASSUMED CARE OF PATIENT AT 1900. VSS. ASSESSMENT COMPLETED AT 2023 AND IS DOCUMENTED. +1 EDEMA BLE. O2 @ 3L VIA NC. LBM: 04/21/18, BUT STATES HE HAS BEEN PASSING GAS. ABD SOFT, NONTENDER. HYPOACTIVE BS. PT CONTINUES TO HAVE SOA WITH EXERTION AND NPC. 1500ML FR CONTINUES. LEFT WRIST PIV PATENT AND SALINE LOCKED. PT ABLE TO CALL OUT APPROPRIATELY, BUT DOES NEED REMINDED SOMETIMES. PT CURRENTLY SLEEPING IN BED IN NO ACUTE DISTRESS. CALL LIGHT WITHIN REACH. BED LOCKED AND IN LOWEST POSITION. WCTM.
[2018-04-26 07:03] LABS: HEMATOCRIT 41.6 % (42.0-52.0); MCH 30.2 pg (26.0-34.0); MCHC 31.3 g/dL (28.0-37.0); MCV 96.7 fL (80.0-100.0); RBC 4.3 mil/uL (4.50-6.00); RDW 13.7 % (10.5-14.5); WBC 6.6 thou/uL (4.0-11.0)
[2018-04-26 07:17] LABS: CALCIUM 8.9 mg/dL (8.5-10.1); CREATININE 1.4 mg/dL (0.7-1.3); MAGNESIUM 2.3 mg/dL (1.8-2.4); POTASSIUM 4.2 mmol/L (3.5-5.1)
[2018-04-26 07:43] VITALS: BP 118/73
--- NOTE | 2018-04-26 10:52 | NUR ---
ASSUMED CARE OF PATIENT THIS MORNING. PATIENT IS ALERT AND ORIENTED X 4 WITH SOME FORGETFULNESS. HE IS UP WITH ONE ASSIST WITH WALKER. HE WEARS 3 LITERS OF OXYGEN. NO ABNORMAL FINDINGS WITH HIS ASSESSMENT. SLIGHT BILATERAL LOWER EXTREMITY EDEMA/FEET. IV IN LEFT WRIST SALINE LOCKED. HE IS ON A 5000ML FLUID RESTRICTION. VOIDS PER URINAL. LAST BOWEL MOVEMENT WAS 04/21/18, WILL CHECK WITH PHYSICIAN TO SEE IF SOMETHING CAN BE PRESCRIBED TO HELP. HE GETS SHORT OF AIR ON EXERTION.
[2018-04-26 19:31] VITALS: BP 109/66
--- NOTE | 2018-04-27 02:23 | NUR ---
ASSUMED CARE OF PATIENT AT 1900. VSS. ASSESSMENT COMPLETED AT 2004 AND IS DOCUMENTED. PT CONTINUES ON O2 3L NC, BUT CONTINUES TO HAVE SOA WITH EXERTION. +1 BLE EDEMA NOTED. LEGS HAVE BEEN INTERMITTENTLY ELEVATED THROUGHOUT THE NIGHT. PRN LACTULOSE GIVEN DURING DAY SHIFT WITH NO RESULT AT THIS TIME. PT TOLERATING 1500ML FLUID RESTRICTION WELL. LEFT WRIST PIV PATENT AND SALINE LOCKED. PT UP WITH SBA D/T NEEDING REGULAR SAFETY EDUCATION WHILE TRANSFERRING AND AMBULATING WITH WALKER. PT CURRENTLY SLEEPING SOUNDLY IN BED IN NO ACUTE DISTRESS. ABLE TO CALL OUT APPROPRIATELY AND HAS CALL LIGHT WITHIN REACH. BED LOCKED AND IN LOWEST POSITION. WCTM.
[2018-04-27 06:30] LABS: HEMOGLOBIN 12.3 gm/dL (14.0-18.0); MCH 30.8 pg (26.0-34.0); MCHC 32.3 g/dL (28.0-37.0); MCV 95.4 fL (80.0-100.0); RBC 3.98 mil/uL (4.50-6.00); RDW 13.5 % (10.5-14.5); WBC 6.4 thou/uL (4.0-11.0)
[2018-04-27 06:42] LABS: BUN 37 mg/dL (7-18); CALCIUM 8.6 mg/dL (8.5-10.1); CHLORIDE 101 mmol/L (98-107); CREATININE 1.3 mg/dL (0.7-1.3); GLUCOSE 103 mg/dL (74-106); MAGNESIUM 2.1 mg/dL (1.8-2.4); POTASSIUM 3.9 mmol/L (3.5-5.1); SODIUM 144 mmol/L (136-145)
[2018-04-27 06:52] LABS: CO2 > 45 mmol/L (21-32)
[2018-04-27 07:31] LABS: HCO3 37.8 mmol/L (22.0-26.0); PCO2 54.4 mmHg (35.0-45.0); PO2 97.1 mmHg (80.0-100.0); sO2 97.6 % (92.0-98.0)
[2018-04-27 07:33] VITALS: BP 131/77
[2018-04-27 08:39] VITALS: BP 131/77
--- NOTE | 2018-04-27 09:52 | NUR ---
HALEY reviewed chart and spoke with nursing. Pt is progressing towards goals for discharge to post-acute. [facility] can [facility] pt from a clinical standpoint. Awaiting insurance authorization from [facility]. equipment planner to send clinical/therapy updates to [facility] when available. HALEY updated Jimbo in admissions to provide update. Chart copy ordered. HALEY is following to assist as needed with discharge planning.
--- NOTE | 2018-04-27 10:28 | NUR ---
CHART COPY ORDERED FROM JACOB/Jaylene
--- NOTE | 2018-04-27 11:24 | NUR ---
ASSSUMED CARE OF PATIENT THIS MORNING. PATIENT IS ALERT AND ORIENTED X 4 WITH SOME FORGETFULNESS. HE IS UP WITH 1 ASSIST AND WALKER. PATIENT WEARS 3 LITERS OF OXYGEN. VOIDS PER URINAL. LAST BOWEL MOVEMENT WAS 04/21/18, LACTULOSE GIVEN PRN, STILL NO RESULTS. PATIENT PASSING FLATUS. CO2 LEVEL WAS ELEVATED THIS MORNING >45. ABG DRAWN 97.6 (WITHIN NORMAL RANGE). PATIENT ASSESSED LUNG SOUNDS WERE CLEAR AND SLIGHTLY DIMINISHED. PATIENT WILL POSSIBLY BE DISCHARGED TODAY. HE IS CURRENTLY SITTING IN CHAIR WITH CHAIR ALARM UNDER HIM. CALL LIGHT WITHIN REACH.
[2018-04-27] MEDS ORDERED: CARVEDILOL3.125 MG PO (13:09)
[2018-04-27] MEDS ORDERED: TORSEMIDE20 MG PO (13:13)
[2018-04-27] MEDS ORDERED: COZAAR 25 MG TA25 MG PO (13:14)
[2018-04-27] MEDS ORDERED: PREDNISONE 10 M10 MG PO (13:15)
--- NOTE | 2018-04-27 14:41 | NUR ---
DISCHARGED TO [facility]. PATIENT LEFT VIA WHEELCHAIR VAN, 3L O2. PAPERWORK GIVEN TO WHEELCHAIR VAN TRANSPORTER. IV REMOVED.
--- NOTE | 2018-04-27 16:06 | NUR ---
I AGREE WITH NURSING ASSESSMENT DONE BY MOY/CÉSAR.
== END 2018-04-27 16:11 | DRG 291 ==
LOC: ER 15:39 → 3W 18:41 → EROBS 18:41 → SICU 18:41 → 3W 20:05 → SICU 04-24 18:17
PROVIDERS: Emergency Medicine; Internal Medicine; Nurse Practitioner Acute Care; Nurse Practitioner Family; ADMIT Hospitalist
DX: I13.0 Hypertensive heart and chronic kidney disease with heart failure and stage 1 through stage 4 chronic kidney disease, or unspecified chronic kidney disease (principal); I50.43 Acute on chronic combined systolic (congestive) and diastolic (congestive) heart failure; E43 Unspecified severe protein-calorie malnutrition; J96.00 Acute respiratory failure, unspecified whether with hypoxia or hypercapnia; I38 Endocarditis, valve unspecified; F41.9 Anxiety disorder, unspecified; N18.3 Chronic kidney disease, stage 3 (moderate); I25.10 Atherosclerotic heart disease of native coronary artery without angina pectoris; Z51.5 Encounter for palliative care; E87.70 Fluid overload, unspecified; J44.9 Chronic obstructive pulmonary disease, unspecified; Z98.52 Vasectomy status; Z86.718 Personal history of other venous thrombosis and embolism; Z87.891 Personal history of nicotine dependence; Z82.49 Family history of ischemic heart disease and other diseases of the circulatory system; Z83.3 Family history of diabetes mellitus; I25.2 Old myocardial infarction; Z68.25 Body mass index [BMI] 25.0-25.9, adult; Z79.82 Long term (current) use of aspirin; Z79.899 Other long term (current) drug therapy; Z28.21 Immunization not carried out because of patient refusal
CPT/HCPCS: 10879; 15002

== ENCOUNTER 2018-05-05 17:25 | Inpatient (IN) | payer OTHER ==
[~2018-05-05] VITALS: Ht 188 cm; Wt 82.2 kg
--- NOTE | ~2018-05-05 | HC ---
[facility] [place] [address] CONSULTATION Name: RICK RUIZ Room #: 204-P [facility]..#: [id number] Admission: 05/05/18 Attend Phys: Jackson Shelton MD Discharge: 05/08/18 Date of : 43 Report #: [id number] THIS REPORT FOR: //name// CC: Jackson Kolb DATE OF SERVICE: 05/07/2018 CHIEF COMPLAINT: Stage 3 sacral pressure ulceration. HISTORY OF PRESENT ILLNESS: This is a 72-year-old male patient who was admitted to the hospital with weakness and hypotension. He states he is feeling weak and is not able to offer much else in terms of comment on how he is feeling. It is noted that he has a history of congestive heart failure. He has had some change in his medications. He apparently has been offered palliative care and thus far has declined. PAST MEDICAL HISTORY: Positive for congestive heart failure, chronic kidney disease, COPD, hypertension, history of sepsis. ALLERGIES: None. MEDICATIONS: Include ipratropium, albuterol, alprazolam, Coreg, torsemide, potassium, aspirin, fluticasone, duloxetine, Trelegy Ellipta, Tylenol, Dulcolax, Cozaar. SOCIAL HISTORY: The patient admits to 1-2 alcoholic drinks daily. Has a previous [id number] history of smoking, currently denies smoking. FAMILY HISTORY: Positive for heart disease, diabetes. REVIEW OF SYSTEMS: Is very limited and other than the history of present illness discussed above, is unobtainable for a 14-point review of systems. PHYSICAL EXAMINATION: VITAL SIGNS: At this time include pulse 70, respiratory rate of 22, blood pressure 84/40, temperature 97.8. GENERAL: This is a chronically ill-appearing male patient who appears to be in mild discomfort. HEENT: Head normocephalic. Nose and throat are clear. NECK: Supple. LUNGS: Diminished. HEART: Irregular. ABDOMEN: Soft. SKIN: Examination of the sacral region demonstrates a stage 3 sacral pressure ulceration at the sacrococcygeal region. It is relatively superficial. There [address] [address] CONSULTATION Name: RICK RUIZ Room #: 204-P [facility].#: [id number] Admission: 05/05/18 Attend Phys: Jackson Shelton MD Discharge: 05/08/18 Date of : 43 Report #: [id number] is no tunneling, undermining or exposure of any deep structures. Skin is warm and dry. EXTREMITIES: Lower extremities demonstrate heels are intact. NEUROLOGIC: The patient is alert. Does appear symmetrical. He is slow to answer questions. LABORATORY DATA: At this time include sodium 146, potassium 3.7, chloride 107, CO2 of 36, BUN 47, creatinine 1.7, glucose 182. Albumin is 2.1. White blood cell count is 12.1 with hemoglobin 11.9. CLINICAL IMPRESSION: 1. Stage 3 sacral pressure ulceration. 2. Hypotension. 3. History of congestive heart failure. 4. Chronic obstructive pulmonary disease. 5. Chronic kidney disease. RECOMMENDATIONS: At this point in time, we will recommend Silvadene, morphine, and zinc oxide to be applied to the sacral region twice daily and as needed. He will need a low air loss mattress with q. 2 hour turning position. He will need aggressive nutritional support. Recommend continuing current medication regimen. I do appreciate being asked to see him in consultation. By: [id number] Parrish Mcginnis MD /nt
[~2018-05-05 17:25] MED LIST changes: +COZAAR 25 MG TA25 MG PO; +TORSEMIDE20 MG PO
[2018-05-05 17:26] VITALS: BP 86/48
[2018-05-05 17:42] LABS: ABSOLUTE NEUTROPHILS 10.5 thou/uL (1.4-8.2); BASOPHILS 0.3 % (0.0-2.0); EOSINOPHILS 0.1 % (0.0-3.0); HEMATOCRIT 36.4 % (42.0-52.0); HEMOGLOBIN 11.9 gm/dL (14.0-18.0); LYMPHOCYTES 6.6 % (24.0-44.0); MCHC 32.7 g/dL (28.0-37.0); MCV 94.8 fL (80.0-100.0); MONOCYTES 6.1 % (1.0-8.0); PLATELET COUNT 101 thou/uL (150-400); POLYS 86.9 % (36.0-66.0); RBC 3.84 mil/uL (4.50-6.00); RDW 14.3 % (10.5-14.5); WBC 12.1 thou/uL (4.0-11.0)
[2018-05-05 17:48] LABS: ANION GAP 2 mmol/L (7-16); BUN 36 mg/dL (7-18); CALCIUM 8.2 mg/dL (8.5-10.1); CHLORIDE 108 mmol/L (98-107); CO2 37 mmol/L (21-32); CREATININE 1.6 mg/dL (0.7-1.3); GLUCOSE 122 mg/dL (74-106); POTASSIUM 4.5 mmol/L (3.5-5.1); SODIUM 147 mmol/L (136-145)
[2018-05-05 17:56] LABS: ALBUMIN 2.1 g/dL (3.4-5.0); DIRECT BILIRUBIN 0.4 mg/dL (<0.1-0.3); SGOT 23 U/L (15-37); SGPT 11 U/L (30-65); TOTAL BILIRUBIN 2.1 mg/dL (<0.1-1.0); TOTAL PROTEIN 5.6 g/dL (6.4-8.2); TROPONIN-I <0.06 ng/mL (<0.06)
[2018-05-05] MEDS ORDERED: BISACODYL SUPP10 MG RECTAL (17:56)
[2018-05-05] MEDS ORDERED: COZAAR 25 MG TA25 M2 PO (17:56)
[2018-05-05] MEDS ORDERED: TYLENOL325 MG PO (17:56)
[2018-05-05 19:45] LABS: URINE BILIRUBIN NEGATIVE (Negative); URINE BLOOD 2+ (Negative); URINE CLARITY CLEAR; URINE COLOR YELLOW; URINE GLUCOSE-RANDOM* NEGATIVE (Negative); URINE KETONES NEGATIVE (Negative); URINE LEUKOCYTES NEGATIVE (Negative); URINE NITRITE NEGATIVE (Negative); URINE PROTEIN (DIPSTICK) NEGATIVE (Negative); URINE SPECIFIC GRAVITY < 1.005 (1.005-1.035)
[2018-05-05 19:50] VITALS: BP 83/43
[2018-05-05 19:54] LABS: CASTS None Seen /LPF (None Seen); CRYSTALS None Seen /LPF (None Seen); SQUAMOUS None Seen /LPF (0-3); URINE RBC 0-2 Rare /HPF (0-2)
[2018-05-05 19:55] LABS: URINE WBC 0-5 Rare /HPF (0-5)
--- NOTE | 2018-05-05 20:17 | EKG ---
[address] [address] ELECTROCARDIOGRAM REPORT Name: RICK RUIZ Room #: 170-8 ADM IN M.R.#: [id number] Admission: 05/05/18 Attend Phys: Nura Adame Discharge: Date of : 43 Report #: [id number] THIS REPORT FOR: //name// [facility] ED Test Date: 2018-05-05 Test Time: 17:33:17 Pat Name: RICK RUIZ Department: Room: 170 Gender: M Lead Sustainability Specialist: ASHLEY : 1945 Requested By: Alvin Clarke Order Number: [id number] MD: Kevan Alcaraz Measurements Intervals [place] Rate: 81 P: 70 MO: 191 QRS: 10 QRSD: 97 T: 156 QT: 401 QTc: 466 Interpretive Statements Sinus rhythm Probable left atrial enlargement LVH with secondary repolarization abnormality Baseline wander in lead(s) V3 Compared to ECG 04/20/2018 17:34:12 Ventricular premature complex(es) no longer present Electronically Signed On 05-05-2018 20:16:51 [employer] by Kevan Alcaraz [email or web address] <ELECTRONICALLY SIGNED> By: Kevan Alcaraz MD 05/05/182015 1733 1733 Kevan Alcaraz MD /EPI
--- NOTE | 2018-05-05 20:24 | NUR ---
CANDELARIA RONQUILLO GIVING REPORT TO CCU RNRICCO. PATIENT TO BE TRANSPORTED TO CCU ROOM 204. FAMILY AT BEDSIDE.
[2018-05-05 20:27] VITALS: BP 88/45
[2018-05-05 20:52] VITALS: BP 92/50
[2018-05-05 23:39] VITALS: BP 89/42
[2018-05-06 03:50] VITALS: BP 94/50
[2018-05-06 04:05] LABS: ALBUMIN 2.1 g/dL (3.4-5.0); CALCIUM 8.2 mg/dL (8.5-10.1); CREATININE 1.7 mg/dL (0.7-1.3); TOTAL BILIRUBIN 2.4 mg/dL (<0.1-1.0); TOTAL PROTEIN 5.5 g/dL (6.4-8.2)
[2018-05-06 04:21] LABS: HEMATOCRIT 35.8 % (42.0-52.0); HEMOGLOBIN 11.4 gm/dL (14.0-18.0); MCH 30.7 pg (26.0-34.0); MCHC 31.8 g/dL (28.0-37.0); MCV 96.6 fL (80.0-100.0); RBC 3.7 mil/uL (4.50-6.00); RDW 14.1 % (10.5-14.5); WBC 11.2 thou/uL (4.0-11.0)
--- NOTE | 2018-05-06 06:04 | NUR ---
PT NEW ADMIT. AO X4. HYPOTENSIVE. RECEIVED BOLUS FLUIDS AND CURRENTLY ON IV FLUIDS 80ML/HR. SACRAL WOUND. PICTURE TAKEN, AND DOCUMENTED. AT BEDSIDE. PER THE , THEY ARE INTERESTED IN HOSPICE CARE. POSTDOCTORAL RESEARCH FELLOW NOTIFIED CONSULT MADE. PT HAS SOB WITH ACTIVITY. ON 2L OF OXYGEN. C/O PAIN IN THE SACRAL AREA. PAIN MEDS GIVEN DOCUMENTED. WILL CONTINUE TO FOLLOW POC.
[2018-05-06 07:43] VITALS: BP 84/45
[2018-05-06 11:05] VITALS: BP 88/47
--- NOTE | 2018-05-06 12:16 | NUR ---
Notification of pt with coccyx pressure ulcer, wound care to see. Recently discharged about week ago, now readmitted. Multiple lab abnormalities. chart reviewed and noted family would like to pursue hopsice. Continue diet as tolerated and defer further nutrition eval.
--- NOTE | 2018-05-06 14:18 | NUR ---
patient admits with hypotensive, sepsis, copd. Patient with recent dc from [facility] to [facility] 04/27/18 for post acute care. Patient prev lived at sisters home. Patient recent marriage as well in past month. Sp with at bedside. She wanted financial documents notorized, alerted [facility] cannot notorize these documents and rev can notorize [facility] Advance Directive for health care. reports patient interested in Hospice care. Dr Bah met with and patient separately. he reports patient did say he is tired of back and forth hospital to rehab and does not want to continue. Dr Bah patient approp for hospice but not hospice house. He may improve and then transition off hospice. he reviewed all information with and patient of hospice house criteria, hospice at home and at nursing facility. He reviewd hospice philosophy. Sp with regarding option of hospice care. She reports care at [facility] was good for patient and willing to return to [facility] patient pay ltc. She reports [facility] [place] their information for [place] [facility] care policy for their review. reports 3 dtrs of patient who can rec information but she reports patients sister "upsets patient." When not present this casemgr sp with patient of whom can [facility] speak with and update care and patient agreeable with , dtr and sister. reports sister to visit today but if upsetting patient she needs to leave. Alerted RN would address if patient getting upset. RN reports sister visited and wanted her to leave but patient cont to be agreeable to visit. Sister said she would just leave. left town this afternoon for [place]. She will be avail by phone tomorrw as she is in court in [facility]. Sp with Admission at [facility]. Updated Admissions Jimbo. Jimbo reports she does not beleive they have policy information. She will sp with their [facility], otherwise $320.00 a day for ltc with or without hospice services. Jimbo plans to reach out to by phone. Casemgt updated phys . COnt to assess dc planning.
[2018-05-06 14:53] VITALS: BP 82/41
--- NOTE | 2018-05-06 15:15 | 2DMMODE ---
[facility] [address] [place] [address] 2 D/M-MODE ECHOCARDIOGRAM Name: RICK RUIZ Room #: 204-P [facility]#: [id number] Admission: 05/05/18 Attend Phys: Jackson Shelton, Discharge: Date of : 43 Date of Service: 05/06/18 1514 Report #: [id number] THIS REPORT FOR: //name// APPROVED REPORT Study performed: 05/06/2018 12:05:30 EXAM: Comprehensive 2D, Doppler, and color-flow Echocardiogram Patient Location: Bedside Room #: 204 Status: routine BSA: 2.08 HR: 84 bpm BP: 84/45 mmHg Rhythm: NSR Other Information Study Quality: Good Indications Aortic Valve Disease COPD Cardiomyopathy 2D Dimensions RVDd: 44.67 mm IVSd: 12.48 (7-11mm) LVOT Diam: 22.11 (18-24mm) LVDd: 67.92 mm PWd: 12.77 (7-11mm) Ascending Ao: 47.70 (22-36mm) LVDs: 56.17 (25-40mm) Aortic Root: 48.11 mm IVC: 26.00 mm Volumes Left Atrial Volume (Systole) Single Plane 4CH: 134.21 mL Single Plane 2CH: 144.96 mL LA ESV Index: 84.00 mL/m2 Aortic Valve AoV Peak Tirsten.: 3.90 m/s AO Peak Gr.: 60.95 mmHg LVOT Max P.37 mmHg AO Mean Gr.: 39.17 mmHg LVOT Mean P.80 mmHg AO V2 Mean: 2.95 m/s LVOT Max V: 1.25 m/s AO V2 VTI: 94.06 cm LVOT Mean V: 0.92 m/s ALE (VTI): 1.12 cm2 LVOT V1 VTI: 27.55 cm ALE Vmax: 1.23 cm2 AI Vmax: 4.66 m/s SV (LVOT): 105.72 mL [facility] [place] [address] [place] [address] 2 D/M-MODE ECHOCARDIOGRAM Name: RICK RUIZ Room #: 204-P [facility]#: [id number] Admission: 05/05/18 Attend Phys: Jackson Shelton, Discharge: Date of : 43 Date of Service: 05/06/18 1514 Report #: [id number] AI Cass: 8.28 m/s2 AI PHT: 163.40 ms Mitral Valve E/A Ratio: 2.9 MV Decel. Time: 133.92 ms MV E Max Tristen.: 1.03 m/s MV A Tristen.: 0.36 m/s MV PHT: 38.84 ms IVRT: 59.98 ms Pulmonary Valve PV Peak Tristen.: 1.07 m/s PV Peak Gr.: 4.58 mmHg Pulmonary Vein P Vein S: 0.25 m/s P Vein A: 0.25 m/s P Vein D: 0.38 m/s P Vein A Dur.: 92.3 msec P Vein S/D Ratio: 0.66 Tricuspid Valve TR Peak Tristen.: 3.50 m/s TR Peak Gr.: 48.99 mmHg PA Pressure: 59.00 mmHg Left Ventricle Left ventricle is dilated. There is global hypokinesis of the left ventricle. Mild concentric left ventricular hypertrophy. Left ventricular systolic function is moderate to severely decreased. LVEF is 30-35%. Grade IV - fixed restrictive diastolic dysfunction. Right Ventricle Right ventricle is dilated. The right ventricular systolic function is normal. Atria Left atrium is dilated. Right atrium is dilated. Aortic Valve Aortic valve is calcified. Moderate aortic regurgitation Moderate aortic stenosis. Mitral Valve The mitral valve is normal in structure. Mild to moderate mitral regurgitation. [address] [address] 2 D/M-MODE ECHOCARDIOGRAM Name: RICK RUIZ Room #: 204-P [facility] ..#: [id number] Admission: 05/05/18 Attend Phys: Jackson Shelton, Discharge: Date of : 43 Date of Service: 05/06/18 1514 Report #: [id number] evidence of mitral valve stenosis. Tricuspid Valve The tricuspid valve is normal in structure. There is mild tricuspid regurgitation. Estimated PAP 59 mmHg. There is moderate pulmonary hypertension. Pulmonic Valve The pulmonary valve is normal in structure. Trace pulmonic regurgitation. Great Vessels Aortic root is dilated. Ascending aorta is dilated. IVC is dilated and collapses <50% with inspiration. Pericardium Trace pericardial effusion. <Conclusion> Left ventricle is dilated. Mild concentric left ventricular hypertrophy. Left ventricular systolic function is moderate to severely decreased. LVEF is 30-35%. Grade IV - fixed restrictive diastolic dysfunction. Right ventricle is dilated. Left atrium is dilated. Moderate aortic regurgitation Moderate aortic stenosis. Mild to moderate mitral regurgitation. There is mild tricuspid regurgitation. Estimated PAP 59 mmHg. There is moderate pulmonary hypertension. <ELECTRONICALLY SIGNED> By: Curry Sims MD 05/06/18 1514 1514 1514 Curry Sims MD /INF
--- NOTE | 2018-05-06 18:31 | NUR ---
ASSESSMENT DOCUMENTED. PT ALERT AND ORIENTED WITH FORGETFULNESS. FAMILY REQUESTED HOSPICE CARE FOR PT. DR COTTO, STREETCAR DISPATCHER, AND DR. MARR AWARE. PT HAD PROBLEM URINATING. ORDERS GIVEN TO INSERT DAILY. TURNED AND REPOSITIONED Q 2 HRS AND NEEDED. FAMILY UPDATED ON PT PROGRESS. NEED ENCOURAGEMENT TO EAT. WILL CONTINUE TO MONITOR.
[2018-05-06 19:27] VITALS: BP 104/65
[2018-05-07 04:30] VITALS: BP 84/48
--- NOTE | 2018-05-07 05:38 | NUR ---
0540 - [facility]. PT HAD FEW NEEDS AND STATED NO COMPLAINTS.
[2018-05-07 07:17] VITALS: BP 86/47
[2018-05-07 10:12] LABS: ABSOLUTE NEUTROPHILS 10.2 thou/uL (1.4-8.2); BASOPHILS 0.5 % (0.0-2.0); EOSINOPHILS 1.2 % (0.0-3.0); HEMATOCRIT 32.9 % (42.0-52.0); HEMOGLOBIN 10.7 gm/dL (14.0-18.0); LYMPHOCYTES 6.4 % (24.0-44.0); MCH 31.2 pg (26.0-34.0); MCHC 32.4 g/dL (28.0-37.0); MCV 96.1 fL (80.0-100.0); MONOCYTES 5.4 % (1.0-8.0); PLATELET COUNT 104 thou/uL (150-400); POLYS 86.5 % (36.0-66.0); RBC 3.42 mil/uL (4.50-6.00); RDW 14.2 % (10.5-14.5); WBC 11.8 thou/uL (4.0-11.0)
[2018-05-07 10:27] LABS: CALCIUM 8.3 mg/dL (8.5-10.1); CREATININE 1.7 mg/dL (0.7-1.3); MAGNESIUM 2.2 mg/dL (1.8-2.4); POTASSIUM 3.7 mmol/L (3.5-5.1)
[2018-05-07 11:20] VITALS: BP 91/54
[2018-05-07 15:04] VITALS: BP 84/43
--- NOTE | 2018-05-07 15:25 | NUR ---
WOUND CONSULT: PT. WAS SEEN TODAY BY DR. WALTERS AND MYSELF. PT. HAS A RESOLVING STAGE 3 TO HIS COCCYX. WOUND DOES NOT APPEAR TO BE INFECTED AT THIS TIME. RECOMMENDATIONS: WOUND CARE TO COCCYX: GENLTY CLEANSE AREA WITH WOUND CLEANSER OR NORMAL SALINE, APPLY SILVADENE/MORPHINE CREAM MIXED WITH ZGUARD, LEAVE OPEN TO AIR, COMPLETE CARES BID. TURN Q2 HOURS KEEP PT. OFF WOUND MUCH POSSIBLE. KEEP ON MASHA MATRESS. PT. AND STAFF NURSE WERE INSTRUCTED ON PLAN OF CARE.
--- NOTE | 2018-05-07 15:35 | NUR ---
Spoke with [facility] admissions x 2 regarding dc today to [facility] care with hospice referral. She indicated they were trying to confirm finanical arrangements with the pt's before accepting. They do have a private pay bed available for him and can setup hospice referral once the pt is readmitted. Message left this afternoon for the pt's spouse Rohini to call back regarding dc planning arrangments. Pt is sleeping this afternoon and appears comfortable. Case discussed with the care team. DC plan is for termite renewal inspector care placement with hospice referral. Awaiting confirmation from [place] admissions. [facility] form to be placed on the chart. Pt agreeable to signing outside the hospital DNR form but too sleepy this afternoon. Chart copy in progress. Care team updated.
--- NOTE | 2018-05-07 16:19 | NUR ---
ASSESSMENT DOCUMENTED. PT PLEASANT AND COOPERATIVE WITH CARES. SEEN BY WOUND CARE. ORDERS NOTED. TURNED AND REPOSITIONED Q 2 HOURS AND NEEDED. WOUND CARE PROVIDED. CHECKED FREQUENTLY AND NEEDS MET. WILL CONTINUE TO MONITOR.
[2018-05-07 20:15] VITALS: BP 92/44
[2018-05-08 00:30] VITALS: BP 89/47
[2018-05-08 04:55] VITALS: BP 94/53
--- NOTE | 2018-05-08 05:10 | NUR ---
PT CONT TO C/O SOB AND PAIN IN SACRAL GLUTEAL AREA. WAS TREATED WITH XANAX, APAP AND REPOSITIONING WITH SOME RELIEF. CONT SOFT BLOOD PRESSURE. FLUIDS WERE OFF AT THE BEGINNING OF THE SHIFT, I RESTARTED THEM THEY WERE STILL ORDERED.
[2018-05-08 05:43] LABS: CALCIUM 7.9 mg/dL (8.5-10.1); CREATININE 1.7 mg/dL (0.7-1.3)
[2018-05-08 08:25] VITALS: BP 93/51
--- NOTE | 2018-05-08 10:54 | NUR ---
FAXED REFERRAL TO [facility]OSPICE [facility]SE SPOKE WITH [facility] AND THEY RECEIVED REFERRAL AND WILL REVIEW. DCP TO FOLLOW.
[2018-05-08 11:40] VITALS: BP 98/62
--- NOTE | 2018-05-08 13:44 | NUR ---
FAXED REFERRAL TO [facility] SPOKE WITH FABIO IN ADM. HE RECEIVED REFERRAL AND WILL SEND IT TO THEIR [facility]. DCP TO FOLLOW.
--- NOTE | 2018-05-08 15:02 | NUR ---
WOUND FOLLOW UP: PT. WAS SEEN TODAY BY DR. WALTERS AND MYSELF. PT. WOUND IS STABLE AT THIS TIME. RECOMMENDATIONS: CONTINUE WITH CURRENT PLAN OF CARE. PT. AND STAFF NURSE WERE INSTRUCTED ON PLAN OF CARE.
--- NOTE | 2018-05-08 15:39 | NUR ---
Referral called and dc urban and regional planner faxed to hospice for house evaluation for inpt or residential. They will be here around 4pm today. Pt's to be here around that time as she is flying back in from [place].
[2018-05-08 16:15] VITALS: BP 95/57
--- NOTE | 2018-05-08 19:44 | NUR ---
PT OUT WITH [facility] WITH OUTSIDE HOSP DNR IN PACKET. FAMILY AT BEDSIDE AND WILL FOLLOW TO HOSPICE.
== END 2018-05-08 19:48 | disposition hospice, inpatient (51) | DRG 871 ==
LOC: ER 17:25 → 2N 19:34 → EROBS 19:34 → 2N 20:29
PROVIDERS: Internal Medicine Cardiovascular Disease; Nurse Practitioner; ADMIT Internal Medicine
DX: A41.9 Sepsis, unspecified organism (principal); L89.153 Pressure ulcer of sacral region, stage 3; J96.11 Chronic respiratory failure with hypoxia; E46 Unspecified protein-calorie malnutrition; I13.0 Hypertensive heart and chronic kidney disease with heart failure and stage 1 through stage 4 chronic kidney disease, or unspecified chronic kidney disease; I50.42 Chronic combined systolic (congestive) and diastolic (congestive) heart failure; E87.0 Hyperosmolality and hypernatremia; Z66 Do not resuscitate; Z51.5 Encounter for palliative care; I95.2 Hypotension due to drugs; N18.3 Chronic kidney disease, stage 3 (moderate); J44.9 Chronic obstructive pulmonary disease, unspecified; F41.9 Anxiety disorder, unspecified; I35.0 Nonrheumatic aortic (valve) stenosis; I25.5 Ischemic cardiomyopathy; I25.10 Atherosclerotic heart disease of native coronary artery without angina pectoris; I72.3 Aneurysm of iliac artery; T50.2X5A Adverse effect of carbonic-anhydrase inhibitors, benzothiadiazides and other diuretics, initial encounter; Y92.89 Other specified places as the place of occurrence of the external cause; Z99.81 Dependence on supplemental oxygen; I25.2 Old myocardial infarction; Z68.23 Body mass index [BMI] 23.0-23.9, adult; Z87.891 Personal history of nicotine dependence; Z86.718 Personal history of other venous thrombosis and embolism; Z79.51 Long term (current) use of inhaled steroids; Z79.82 Long term (current) use of aspirin; Z79.899 Other long term (current) drug therapy; Z82.49 Family history of ischemic heart disease and other diseases of the circulatory system; Z83.3 Family history of diabetes mellitus
CPT/HCPCS: 10081